=== PATIENT | female | born 1940 | race Caucasian/White ===

== ENCOUNTER → 2019-04-03 08:53 | Outpatient (BNVA) | payer SELFPAY | PROVIDERS: Family Provider Nurse Practitioner; PCP Nurse Practitioner; Visit Provider Nurse Practitioner | DX: E11.9 Type 2 diabetes mellitus without complications (principal); I10 Essential (primary) hypertension; M54.5 Low back pain; R41.3 Other amnesia | CPT/HCPCS: 80053; 83036 ==

== ENCOUNTER → 2019-07-10 08:58 | Outpatient (BNVA) | payer SELFPAY | PROVIDERS: Family Provider Nurse Practitioner; PCP Nurse Practitioner; Visit Provider Nurse Practitioner | DX: E11.9 Type 2 diabetes mellitus without complications (principal); M54.5 Low back pain | CPT/HCPCS: 81003; 82044 ==

== ENCOUNTER → 2019-07-11 15:27 | Outpatient (BNVA) | payer SELFPAY | PROVIDERS: Family Provider Nurse Practitioner; PCP Nurse Practitioner; Visit Provider Nurse Practitioner | DX: E11.9 Type 2 diabetes mellitus without complications (principal); I10 Essential (primary) hypertension | CPT/HCPCS: 80053; 80061; 83036; 83721 ==

== ENCOUNTER → 2020-01-15 14:22 | Outpatient (BNVA) | payer SELFPAY | PROVIDERS: Family Provider Nurse Practitioner; PCP Nurse Practitioner; Visit Provider Nurse Practitioner | DX: E83.52 Hypercalcemia (principal); E11.9 Type 2 diabetes mellitus without complications; M54.5 Low back pain | CPT/HCPCS: 80053; 80061; 82310; 83036; 83970 ==

== ENCOUNTER → 2020-07-16 09:38 | Outpatient (BNVA) | payer SELFPAY | PROVIDERS: Family Provider Nurse Practitioner; PCP Nurse Practitioner; Visit Provider Nurse Practitioner | DX: E11.9 Type 2 diabetes mellitus without complications (principal); M54.5 Low back pain; I10 Essential (primary) hypertension | CPT/HCPCS: 80053; 80061; 81000; 83036; 84443 ==

== ENCOUNTER → 2020-12-22 10:35 | Outpatient (BNVA) | payer SELFPAY | PROVIDERS: Family Provider Nurse Practitioner; PCP Nurse Practitioner; Visit Provider Nurse Practitioner | DX: E11.9 Type 2 diabetes mellitus without complications (principal) | CPT/HCPCS: 80053; 80061; 81000; 83036; 84443; 85025 ==

== ENCOUNTER → 2021-10-01 13:38 | Outpatient (BNVA) | payer SELFPAY | PROVIDERS: Family Provider Nurse Practitioner; PCP Nurse Practitioner; Visit Provider Nurse Practitioner | DX: E11.9 Type 2 diabetes mellitus without complications (principal); I10 Essential (primary) hypertension; E78.2 Mixed hyperlipidemia; B37.0 Candidal stomatitis | CPT/HCPCS: 80053; 80061; 81000; 83036 ==

== ENCOUNTER 2022-03-11 12:39 | Outpatient (CLI) | payer SELFPAY ==
--- NOTE | 2022-03-11 13:02 | XR_ITS ---
WS: [id number] XR abdomen 1V* [id number] REASON FOR EXAM: K59.01 - Slow transit constipation FINDINGS: No free air or retroperitoneal air. Bowel gas pattern is unremarkable with moderate stool in the righ t colon. No significant volume of stool within the left colon and rectum. No distended small bowel. 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 Left renal calculus. XR/XR abdomen 1V* [id number] IMPRESSION: Multiple chronic abnormalities as above. No significant gastrointestinal abnormality.
--- NOTE | 2022-03-11 13:02 | XR_ITS ---
WS: [id number] XR hip BI 3-4V wo/w pel [id number] REASON FOR EXAM: M54.5 - Low back pain FINDINGS: No acute fracture or focal bone lesion. Old organized periosteal reaction in the proximal femoral sha ft. Severe arthropathy in the left hip joint with obliteration of the joint space, dense sclerosis in the acetabulum, severe erosion of weightbearing femoral head. Multiple loose bodies. 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
== END 2022-03-11 12:40 | disposition home or self-care (01) ==
PROVIDERS: PCP Nurse Practitioner; Visit Provider Nurse Practitioner
DX: K59.01 Slow transit constipation (principal); M54.50 Low back pain, unspecified; I10 Essential (primary) hypertension; E11.9 Type 2 diabetes mellitus without complications; M16.11 Unilateral primary osteoarthritis, right hip
CPT/HCPCS: 73522; 74018; 80053; 80061; 81000; 83036; 84443

== ENCOUNTER → 2022-10-19 11:54 | Outpatient (BNVA) | payer SELFPAY | PROVIDERS: PCP Nurse Practitioner; Visit Provider Nurse Practitioner | DX: E11.9 Type 2 diabetes mellitus without complications (principal) | CPT/HCPCS: 80053; 80061; 81000; 82607; 83036; 84443; 85025 ==

== ENCOUNTER → 2023-04-05 11:39 | Outpatient (BNVA) | payer SELFPAY | PROVIDERS: PCP Nurse Practitioner; Visit Provider Nurse Practitioner | DX: E11.9 Type 2 diabetes mellitus without complications (principal); Z79.899 Other long term (current) drug therapy | CPT/HCPCS: 80053; 80061; 81000; 83036 ==

== ENCOUNTER 2023-09-22 02:28 | Emergency (ER) | payer SELFPAY ==
[2023-09-22] VITALS (7 sets, daily range): BP systolic 99–204; BP diastolic 55–132; PULSE 62–72; RESP 16–55; TEMP 36.3; O2SAT 93–95; BMI 22.4
--- NOTE | 2023-09-22 02:35 | ECG_ITS ---
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 Measurements Intervals [place] Rate: 74 P: 53 NV: 161 QRS: 20 QRSD: 76 T: 51 QT: 380 QTc: 424 Interpretive Statements SINUS RHYTHM LOW QRS VOLTAGE IN PRECORDIAL LEADS [QRS DEFLECTION < 1.0 mV IN CHEST LEADS] No previous ECG available for comparison Electronically Signed On 09-23-2023 0:51:03 CDT by Darlyn Galloway M.D. [email or web address]
--- NOTE | 2023-09-22 02:35 | XRR_ITS ---
PROCEDURE INFORMATION: Exam: XR Chest Exam date and time: 09/22/2023 2:44 AM Age: 83 years old Clinical indication: Pain; Chest pressure; Additional info: Chest pain TECHNIQUE: Imaging protocol: Radiologic exam of the chest. Views: 1 view. COMPARISON: CR XR abdomen 1V* [id number] 03/11/2022 1:11 PM FINDINGS: Lungs: Unremarkable. No consolidation. Pleural spaces: Unremarkable. No pleural effusion. No pneumothorax. Heart/Mediastinum: Unremarkable. No cardiomegaly. Bones/joints: Unremarkable. XR/XR chest 1V portable [id number] IMPRESSION: No acute disease.
--- NOTE | 2023-09-22 02:36 | ED_ITS ---
HPI - Chest Pain 2 General: Chief Complaint: Chest Pain Stated Complaint: ABD PAIN Time Seen by Provider: 09/22/23 02:35 History of Present Illness: Patient presents to the ER with complaints of low chest upper abdominal pain. This been going on for about the last hour until she called EMS. EMS arrived there gave her 3 and 24 mg aspirin 4 mg Zofran has helped resolve the pain by time she came to the ER. Patient said this right upper quadrant epigastric type pain when she has it is dull and achy, is mildly nauseous but no vomiting. Patient never has had this quite like this before. Patient normally does not take anything for blood pressure other than losartan 25 mg daily and her blood pressure upon arrival was 204/88. Patient is pain-free at this time. Review of Systems 2 General: Reports: 10 or more systems reviewed and unremarkable except in HPI and below PFSH ED 2 PFSH: Medical History Memory deficit Lumbar pain with radiation down right leg Essential (primary) hypertension Controlled diabetes mellitus Surgical History History of section 1960 Family History Sister Diabetes Mother Cancer Renal Social History Smoking and tobacco/nicotine status: never used tobacco/nicotine Second hand smoke exposure: No Alcohol intake: never Substance/Drug Use: never Adopted: No Caregiver/support person: No Lives independently: Yes Household members: spouse Housing: House Marital status: Number of children: 1 service: No Current occupational status: retired Do you think of yourself as: Straight/Heterosexual Current gender identity: Female Physical Exam 2 Const: COMMON NORMALS: no acute distress, average body habitus, patient oriented x3, no limitations, healthy appearing, alert and well nourished HENMT: COMMON NORMALS: normocephalic, atraumatic, hearing grossly normal bilaterally, external ears normal, Normal external nose present and moist oral mucous membranes HEAD & SCALP: normocephalic and atraumatic NOSE: Normal external nose present EXTERNAL EAR: Yes external ears normal Neck/C-Spine: COMMON NORMALS: no JVD Chest: COMMONS NORMALS: normal inspection of the chest and normal palpation of entire chest wall Resp: COMMON NORMALS: normal respiratory effort, No retractions, No use of accessory muscles and clear to auscultation bilaterally AUSCULTATION: clear to auscultation bilaterally Cardio: COMMON NORMALS: no JVD, regular rate, regular rhythm, S1 normal heart sound present, S2 normal heart sound present, No gallops present (Cardio), No clicks present (Cardio), No murmurs present (Cardio) and No rub (Cardio) R ATE: regular rate RHYTHM: regular rhythm HEART SOUNDS: S1 normal heart sound present and S2 normal heart sound present GI: COMMON NORMALS: Normal to inspection, nondistended, normoactive bowel sounds present, Soft to palpation, non-tender, No hepatosplenomegaly present and no masses PALPATION: Yes Soft to palpation and Yes No hepatosplenomegaly present Neuro: COMMON NORMALS: patient oriented x3 SENSORIUM/ORIENTATION: Yes alert Course 2 Vital Signs: Vital signs: Vital Signs Temperature 97.4 F L 09/22/23 02:29 Pulse Rate 62 09/22/23 04:31 Respiratory Rate 19 H 09/22/23 04:31 Blood Pressure 117/63 09/22/23 04:31 Pulse Oximetry 93 09/22/23 04:31 Oxygen Delivery Me thod Room Air 09/22/23 03:58 MDM - Chest Pain Medical Decision Making Patient was worked up in a standard chest pain fashion with serial EKGs, serial troponins, chest x-ray, all of which essentially benign did not show acute cardiac cause of her chest pain. Patient be discharged home to follow-up with her PCP. Differential Diagnosis Unlikely acute massive pulmonary embolism, acute respiratory failure, acute myocardial infarction, cardiac arrest or sudden cardiac Medical Records I reviewed the patient's medical records. Lab Data I reviewed the patient's lab results. 09/22/23 02:40 09/22/23 02:40 Radiology Impressions Chest X-Ray 09/22/23 02:35 IMPRESSION: No acute disease. Laboratory Results WBC 4.20 10^3/uL (3.29-11.43) 09/22/23 02:40 RBC 4.58 10^6/uL (3.85-5.65) 09/22/23 02:40 Hgb 13.70 g/dL (11.27-16.99) 09/22/23 02:40 Hct 41.7 % (36-47) 09/22/23 02:40 MCV 91.0 fl (85-98) 09/22/23 02:40 MCH 29.9 pg (27-33) 09/22/23 02:40 MCHC 32.9 g/dL (30-55) 09/22/23 02:40 RDW 13.2 % (12.1-15.1) 09/22/23 02:40 Plt Count 263 10^3/cmm (157-399) 09/22/23 02:40 MPV 10.2 fL (7.4-10.4) 09/22/23 02:40 Neut % (Auto) 39.3 % 09/22/23 02:40 Lymph % (Auto) 46.4 % 09/22/23 02:40 [place] % (Auto) 9.8 % 09/22/23 02:40 Eos % (Auto) 3.1 % 09/22/23 02:40 Baso % (Auto) 1.4 % 09/22/23 02:40 Neut # (Auto) 1.65 10^3/uL (1.8-7.7) L 09/22/23 02:40 Lymph # (Auto) 2.0 10^3/uL (0.8-4.8) 09/22/23 02:40 [place] # (Auto) 0.4 10^3/uL (0.2-0.9) 09/22/23 02:40 Eos # (Auto) 0.1 10^3/uL (0.0-0.8) 09/22/23 02:40 Baso # (Auto) 0.1 10^3/uL (0.0-0.1) 09/22/23 02:40 Nucleated RBC % (auto) 0 % 09/22/23 02:40 Nucleated RBCs # 0.0 /100WBC 09/22/23 02:40 Sodium 142 mmol/L (136-145) 09/22/23 02:40 Potassium 4.1 mmol/L (3.5-5.1) 09/22/23 02:40 Chloride 104 mmol/L (98-107) 09/22/23 02:40 Carbon Dioxide 22 mmol/L (22-29) 09/22/23 02:40 Anion Gap 20.1 (5-19) H 09/22/23 02:40 BUN 19 mg/dL (8-23) 09/22/23 02:40 Creatinine 0.6 mg/dL (0.5-0.9) 09/22/23 02:40 GFR Calculation Not Reportable 09/22/23 02:40 Glucose 125 mg/dL (65-115) H 09/22/23 02:40 Calculated Osmolality 298 mOsm/kg (285-295) H 09/22/23 02:40 Calcium 9.7 mg/dL (8.5-10.5) 09/22/23 02:40 Total Bilirubin 0.3 mg/dL (0.15-1.2) 09/22/23 02:40 AST 12 U/L (0-32) 09/22/23 02:40 ALT 8 U/L (0-33) 09/22/23 02:40 Alkaline Phosphatase 87 U/L (35-105) 09/22/23 02:40 Troponin T Baseline 7 ng/L (0-10) 09/22/23 02:40 Troponin T 120 Minute 7.02 ng/L (0-10) 09/22/23 04:30 Delta Troponin T 0.02 ABS# (0-10) 09/22/23 04:30 Total Protein 7.1 g/dL (6.6-8.7) 09/22/23 02:40 Albumin 4.5 g/dL (3.5-5.2) 09/22/23 02:40 Globulin 2.6 g/dL (1.3-4.6) 09/22/23 02:40 Lipase 31 U/L (13-60) 09/22/23 02:40 Urine Color Yellow (Yellow) 09/22/23 02:44 Urine Appearance Clear (CLEAR) 09/22/23 02:44 Urine pH 8 (5-7) H 09/22/23 02:44 Ur Specific Ash 1.010 (1.005-1.030) 09/22/23 02:44 Urine Protein Neg (Negative) 09/22/23 02:44 Urine Glucose (UA) 4+ (Normal) H 09/22/23 02:44 Urine Ketones Negative (Negative) 09/22/23 02:44 Urine Blood Neg (Negative) 09/22/23 02:44 Urine Nitrate Negative (Negative) 09/22/23 02:44 Urine Bilirubin Neg (Negative) 09/22/23 02:44 Urine Urobilinogen Neg mg/dL (Negative) 09/22/23 02:44 Ur Leukocyte Esterase Negative (Negative) 09/22/23 02:44 All radiology interpretation(s) finalized by discharge Discharge Plan Discharge Patient Disposition: Home Clinical Impression: Chest pain Prescriptions: No Action Invokamet XR 150-1,000 mg tablet, IR - ER, biphasic 24hr 2 tab PO DAILY Qty: 180 1RF losartan 25 mg tablet 25 mg PO QDAY Qty: 90 1RF rosuvastatin [Crestor] 10 mg tablet 10 mg PO DAILY Qty: 90 1RF Hold Instructions: Muscle pain nystatin 100,000 unit/mL suspension 5 ml PO TID Qty: 250 0RF Rx Instructions: swish and swallow Discharge Orders: Discharge ED (Routine); Ordered 09/22/23 Ordered By: Manuelito Nelson Referrals: Analilia Neri, CW OPERATOR-C [Primary Care Provider] - 1 week Patient Instructions: Chest Pain (ED) Activity Restrictions/Additional Instructions: Activity restrictions/additional instructions: Thank you for choosing [facility] for your healthcare needs today. Please realize that you were seen in the emergency department and that we are providing you with an emergency medical screening exam and this may not be a complete and all exclusive of all testing and/or medical workup we may need to determine your element or severity of your illness. It is very important that you follow-up as instructed with your primary care provider or specialist for the additional evaluation and to discuss your medical treatment plan. You may return to the emergency department should you have concerns or if your condition changes or worsens in any way. Coding Level of Care Code ED Building Carpenter Helper for Andreas Valentine
[2023-09-22 02:44] LABS: Basophils # 0.1 10^3/uL (0.0-0.1); Basophils % 1.4 %; Eosinophils # 0.1 10^3/uL (0.0-0.8); Eosinophils % 3.1 %; Hematocrit 41.7 % (36-47); Lymphocytes % 46.4 %; Mean Corpuscular HGB Conc 32.9 g/dL (30-55); Mean Corpuscular Hemoglobin 29.9 pg (27-33); Mean Platelet Volume 10.2 fL (7.4-10.4); Monocytes # 0.4 10^3/uL (0.2-0.9); Monocytes % 9.8 %; Neutrophils # 1.65 10^3/uL (1.8-7.7); Neutrophils % 39.3 %; Nucleated Red Blood Cells % 0 %; Platelet Count 263 10^3/cmm (157-399); Red Blood Count 4.58 10^6/uL (3.85-5.65); Red Cell Distribution Width 13.2 % (12.1-15.1)
[2023-09-22 02:52] LABS: Add Urine Microscopic? NO; Charge for UA Resulting for Rev
[2023-09-22] MEDS: cloNIDine 0.1 mg Tablet 0.2 MG PO (02:54)
[2023-09-22 02:56] LABS: Bilirubin Urine Neg (Negative); Blood Urine Neg (Negative); Glucose Urine UA 4+ (Normal); Ketones Urine Negative (Negative); Leukocyte Esterase Urine Negative (Negative); Nitrate Urine Negative (Negative); Protein Urine Neg (Negative); Urine Appearance Clear (CLEAR); Urine Color Yellow (Yellow); Urobilinogen Urine Neg (Negative); pH Urine 8 (5-7)
[2023-09-22 03:08] LABS: Alanine Aminotransferase 8 U/L (0-33); Albumin Level 4.5 g/dL (3.5-5.2); Alkaline Phosphatase 87 U/L (35-105); Aspartate Amino Transferase 12 U/L (0-32); Blood Urea Nitrogen 19 mg/dL (8-23); Calcium 9.7 mg/dL (8.5-10.5); Carbon Dioxide 22 mmol/L (22-29); Chloride 104 mmol/L (98-107); Creatinine Clr Calc Pharmacy 51.1025; Globulin 2.6 g/dL (1.3-4.6); Glucose 125 mg/dL (65-115); Lipase 31 U/L (13-60); Osmolality Calculated 298 mOsm/kg (285-295); Sodium 142 mmol/L (136-145); Total Bilirubin 0.3 mg/dL (0.15-1.2); Total Protein 7.1 g/dL (6.6-8.7); Troponin(5th) Baseline 7 ng/L (0-10)
[2023-09-22 03:13] LABS: Anion Gap 20.1 (5-19); Potassium 4.1 mmol/L (3.5-5.1)
--- NOTE | 2023-09-22 03:28 | PC.NURSE ---
Patient bladder scanned per instruction of Dr Nelson. Patient retaining approximately 380cc; Dr Nelson notified. This nurse instructed to straight cath to relieve urinary retention; approximately 300 drained via straight cath, and small unmeasured amount drained onto bed in process.
--- NOTE | 2023-09-22 04:35 | ECG_ITS ---
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 Measurements Intervals [place] Rate: 58 P: 47 NE: 148 QRS: 23 QRSD: 75 T: 62 QT: 435 QTc: 428 Interpretive Statements SINUS BRADYCARDIA LOW QRS VOLTAGE IN PRECORDIAL LEADS [QRS DEFLECTION < 1.0 mV IN CHEST LEADS] No previous ECG available for comparison Electronically Signed On 09-23-2023 1:02:29 CDT by Darlyn Galloway M.D. [email or web address]
--- NOTE | 2023-09-22 04:49 | PC.NURSE ---
Patient had 1 small void at bedside commode.
[2023-09-22 04:55] LABS: Troponin 5 2HR 7.02 ng/L (0-10); Troponin 5 2HR Delta 0.02 ABS# (0-10)
--- NOTE | 2023-09-22 05:26 | PC.NURSE ---
This nurse attempted to contact patient's , Jose, in effort to have contact son in law Will who would come pickup patient. Jose did not answer phone at this time.
--- NOTE | 2023-09-22 05:58 | PC.NURSE ---
Nurse attempted to contact , Jose, again to arrange transport for patient back home without success.
--- NOTE | 2023-09-22 06:00 | PC.NURSE ---
Jose contacted this nurse back and stated that he would get transport arranged for patient to get back home shortly.
== END 2023-09-22 07:38 | disposition home or self-care (01) ==
PROVIDERS: Emergency Provider Emergency Medicine; PCP Nurse Practitioner
DX: R07.9 Chest pain, unspecified (principal); I10 Essential (primary) hypertension; E11.9 Type 2 diabetes mellitus without complications
CPT/HCPCS: 71045; 80053; 81003; 83690; 84484; 85025; 93005; 99285

== ENCOUNTER → 2024-04-09 11:36 | Outpatient (BNVA) | payer SELFPAY | PROVIDERS: PCP Nurse Practitioner; Visit Provider Nurse Practitioner | DX: E11.9 Type 2 diabetes mellitus without complications (principal); E11.65 Type 2 diabetes mellitus with hyperglycemia; G47.00 Insomnia, unspecified; M25.562 Pain in left knee; I10 Essential (primary) hypertension | CPT/HCPCS: 73562; 80053; 80061; 81000; 83036; 84443 ==

== ENCOUNTER → 2024-07-09 14:52 | Outpatient (BNVA) | payer SELFPAY | PROVIDERS: PCP Nurse Practitioner; Visit Provider Nurse Practitioner | DX: E11.65 Type 2 diabetes mellitus with hyperglycemia (principal); E03.8 Other specified hypothyroidism | CPT/HCPCS: 80053; 83036; 84443 ==

== ENCOUNTER → 2024-10-01 14:14 | Outpatient (BNVA) | payer SELFPAY | PROVIDERS: PCP Nurse Practitioner; Visit Provider Nurse Practitioner | DX: E11.65 Type 2 diabetes mellitus with hyperglycemia (principal); E03.8 Other specified hypothyroidism; M54.50 Low back pain, unspecified; E11.9 Type 2 diabetes mellitus without complications; M79.604 Pain in right leg | CPT/HCPCS: 80053; 81000; 83036 ==

== ENCOUNTER → 2024-12-31 14:02 | Outpatient (BNVA) | payer SELFPAY | PROVIDERS: PCP Nurse Practitioner; Visit Provider Nurse Practitioner | DX: E11.65 Type 2 diabetes mellitus with hyperglycemia (principal); E03.8 Other specified hypothyroidism | CPT/HCPCS: 80053; 80061; 81000; 82043; 83036; 84443 ==